=== PATIENT | female | born 1945 | race Caucasian/White ===

== ENCOUNTER 2024-11-04 13:06 | Inpatient (IN) | payer MEDICARE, OTHER, SELFPAY ==
[2024-11-04] VITALS (8 sets, daily range): BP systolic 90–161; BP diastolic 58–82; PULSE 92–112; BMI 18.0
--- NOTE | 2024-11-04 09:57 | ED.GENMED ---
History of Present Illness
General
Chief Complaint: Musculo-Skeletal Complaint
Source: patient
Exam Limitations: none
Time Seen by Provider: 11/04/24 09:10
Nursing documentation reviewed up to this point in time: agreed with
History of Present Illness
History of Present Illness:
79-year-old female with a history of mesothelioma, DVT on Coumadin, COPD, chronic back pain with history of vertebral compression fractures, kyphosis and osteoporosis
Presents for acute on chronic worsening left lower back pain into her left anterior thigh. Patient has had pain in this back and hip for years, she has had sciatica where it goes down her leg but never usually wraps around the front to her thigh or
on the side of her thigh like it is over the past 2 days. She had no falls or injuries. She lives alone but has caregivers who help make her meals. It sounds as if she is minimally ambulatory at baseline and does use a walker from time to time.
She says she could not get in a comfortable position because her bed was too soft. Patient did not try anything for pain. She says she is afraid to take anything because she is on Coumadin. Patient actually called EMS last night because she was
feeling lightheaded and thought she was dehydrated. She says she needed them to hand her her cup of water. She ultimately refused transport. Patient says she did drink some water but she still feels dehydrated. Patient says 'are you going to
give me some fluids.'
She has not had a fever, urinary incontinence, new sensory changes, new weakness, abdominal pain,
She is many varicose veins in her legs all her which are chronic
Past History
Past History
ED Past Medical History: COPD, NIDDM and Other (DVT)
ED Past Surgical History: Gynecological and Other
Social History
Tobacco: Former smoker
Alcohol: None
Drug: None
Personal:
Living: alone
Review of Systems
Review of Systems
Allergies reviewed?: Yes
All Other Systems: Not applicable
Phy Exam
Physical Exam
Physical Exam:
GENERAL: significantly anxious, agitated, fidgeting, stressed
HEAD: NCAT
NECK: no midline tenderness, active ROM intact, no paraspinal muscle tenderness;
CARDIAC: Regular rate and rhythm, no edema
LUNGS: Clear breath sounds bilaterally, no acute respiratory distress, no wheezes/rales/rhonchi
ABDOMEN: Soft, without focal tenderness, no r/g, no cvat, normal bowel sounds, nondistended
NEUROLOGICAL: Alert and oriented, no focal neuro deficits, CN intact, 5/5 strength, sensation intact, ambulation slight limp left leg
SKIN: Warm and dry, varicose veins; no rash
MUSCULOSKELETAL: pt seems to have hypersensitivity to touch anywhere on legs; specifically moving L hip seems most uncomfortable; she does not wish to be examined; but she is flexing her knees and hips in the bed, trying to get comfortable so she
can perform active ROM
back severe kyphosis of spine, severe scoliosis
no bruising
PSYCH: anxious
Course
Orders/Labs/Results
Orders:
Orders
11/04/24 09:48
Acetaminophen [Tylenol] 650 mg PO NOW STA
Diazepam [Valium] 2 mg PO NOW STA
11/04/24 Lunch
Regular
At Your Request: Limited Participation
Fluid Restriction: 1440 mL/day (48 oz)
11/04/24 10:06
CPK [Creatine Phosphokinase] Urgent
Complete Blood Count/With Diff Urgent
Comprehensive Metabolic Panel Urgent
Glycohemoglobin (HgbA1c) Urgent
PTT Urgent
Prothrombin Time Urgent
Serum Osmolality Urgent
Comment: ADDED
TSH Reflex To Free T4 Urgent
Comment: ADDED
11/04/24 10:31
0.9% Sodium Chloride 1000 ml [Nss] 1,000 ml IV BOLUS
11/04/24 10:52
Osmolality, Random Urine Urgent
Date Specimen was Collected: 11/04/24
Time Specimen was Collected: 10:50
Comment: ADDED
Urinalysis Urgent
Date Specimen was Collected: 11/04/24
Time Specimen was Collected: 10:50
Urine Creatinine Urgent
Date Specimen was Collected: 11/04/24
Time Specimen was Collected: 10:50
Comment: ADDED
Urine Microscopic Urgent
Date Specimen was Collected: 11/04/24
Time Specimen was Collected: 10:50
Urine Sodium Urgent
Date Specimen was Collected: 11/04/24
Time Specimen was Collected: 10:50
Comment: ADDED
11/04/24 11:39
Add On- LAB Urgent
Tests Added?: serum osmolality, TSH w/ reflex T4
11/04/24 11:55
NEPHROLOGY CONSULT Routine
Consulting Provider: Uyen Chu
Was physician already notified: Yes
11/04/24 11:58
Admit/Transfer Patient As Directed
Co-Sign Provider:
Level of Care: Inpatient admission
Assign to:: Medical/Surgical
Physician / Group: zhanna dorsey
Diagnosis: Hyponatremia, back pain, weakness
Reason for Hospitalization: Hyponatremia, back pain, weakness
Expected length of stay greater than two midnights?: Yes
ELOS- Estimated Length of Stay in days: 3
I certify the patient meets the requirements for IP care: Yes
PRN Pain Medication Management As Directed
May give lesser potent ordered pain med per pt: Yes
preference::
Protocol:: Medication orders for pain may be administered in a
manner that supports deferring to patient preference
when the pt is:
- Requesting an ordered lesser potent pain medication.
Least to most potent pain medications are defined
as: acetaminophen < NSAID < tramadol < opioids
(morphine, oxycodone, hydromorphone).
- Requesting a lesser dose of the same medication IF
ORDERED.
- Requesting a less intrusive route of administration
if both routes are prescribed by the provider (PO <
IV).
11/04/24 12:00
Code Status As Directed
Resuscitation Status: Full Code
11/04/24 12:34
CT Abd/pel Without Iv Or Oral Urgent
Comment:
Reason For Exam: left sided pelvic pain, no trauma, rhabdo
11/04/24 13:54
Acetaminophen [Tylenol] 650 mg PO Q4HPRN PRN
Cholecalciferol (Vitamin D3) [VITAMIN D3 (cholecalciferol)] 25 mcg PO DAILY
Diazepam [Valium] 2 mg PO TIDPRN PRN
Lidocaine [Lidocaine 4% Patch] 1 patch TOPICAL DAILY
Apply Lidocaine patch(s) to:: lower back
Magnesium Hydroxide [Milk of Magnesia] 30 ml PO DAILYPRN PRN
Ondansetron Injectable [Zofran] 4 mg IV Q6HPRN PRN
Oxycodone [Roxicodone] 5 mg PO Q4HPRN PRN
11/04/24 13:54
EKG [Electrocardiogram (*1)] Routine
Reason for Study: QTc Monitoring
Activity As Directed
Activity Level: Ambulate
Ice Application [Cold Application] As Directed
Location: low back
Frequency: PRN
Duration of Application: No longer than 20 minutes
Method of Delivery: Ice packs
K pad [Heat Application] As Directed
Apply heat therapy device to (location):: lower back
Device Frequency setting:: 20 minute cycles
Device temperature setting:: Moderate: 100 F (38 C)
Orthostatic Vital Signs As Directed
Orthostatic VS Frequency: Daily
Pneumatic Compression Sleeves As Directed
Type: Knee high
Vital Signs As Directed
Frequency: Per unit guidelines
Ot Eval And Treat Routine
Pt Eval And Treat Routine
Activity Level: Ambulate
DX Deep Vein Thrombosis Video Routine
11/04/24 18:00
Warfarin [Coumadin] 2.5 mg PO SuTuThSa@1800
11/05/24 06:00
Basic Metabolic Panel IN AM
Magnesium IN AM
Prothrombin Time IN AM
11/05/24 08:00
Calcium Carbonate [Oscal [place] 500] 500 mg PO DAILY
11/06/24 06:00
Basic Metabolic Panel IN AM
Prothrombin Time IN AM
11/06/24 18:00
Warfarin [Coumadin] 5 mg PO MoWeFr@1800
11/07/24 06:00
Basic Metabolic Panel IN AM
Prothrombin Time IN AM
11/08/24 06:00
Prothrombin Time IN AM
11/09/24 06:00
Prothrombin Time IN AM
11/10/24 06:00
Prothrombin Time IN AM
Abnormal Lab Results
11/04/24 11/04/24
10:06 10:52
RBC 3.99 L 10^6/uL
(4.20-5.40)
Hct 34.8 L %
(37.0-47.0)
MCH 31.3 H pg
(27.0-31.0)
Absolute Neuts (auto) 7.6 H 10^3/uL
(1.4-6.5)
Absolute Lymphs (auto) 0.9 L 10^3/uL
(1.2-3.4)
Absolute Monos (auto) 0.8 H 10^3/uL
(0.1-0.6)
Neutrophils % 82.0 H %
(42.2-75.2)
Lymphocytes % 9.2 L %
(20.5-51.1)
PT 26.5 H Sec
(11.4-14.6)
APTT 35.1 H Sec
(23.4-35.0)
Sodium 122 L mmol/L
(135-145)
Chloride 90 L mmol/L
(98-107)
Creatinine 0.5 L mg/dL
(0.6-1.0)
Glucose 106 H mg/dl
(70-99)
Serum Osmolality 258 L mOsm/kg
(275-300)
AST 49 H U/L
(14-36)
Creatine Kinase 1384 H U/L
(30-135)
Urine Occult Blood 2+ A
(Negative)
Urine Osmolality 177 L mOsm/kg
(300-900)
Urine Sodium 16 L mmol/L
(30-90)
11/04/24 10:06
11/04/24 10:06
Vital Signs
Initial and Last Documented VS:
Initial Vital Signs
Temp Pulse Resp BP Pulse Ox
36.7 C 99 18 128/71 95
11/04/24 08:57 11/04/24 08:57 11/04/24 08:57 11/04/24 08:57 11/04/24 08:57
Last Documented Vital Signs
Temp Pulse Resp BP Pulse Ox
37.0 C 92 16 128/58 97
11/04/24 15:00 11/04/24 15:00 11/04/24 15:00 11/04/24 15:00 11/04/24 15:00
MDM/Problems Addressed
Differential Diagnosis Includes:
fibromyaglai, chronic pain, arthritis
MDM/Problems Addressed:
room [address] moriah zaldivar 79 y/o F from home, fibromyalgia, h/o DVTs on warfarin; from home, chronic arthritis/back pain but worse pain in her legs b/l (L>R) with spasms over the past 2 days
no trauma; no falls; no fever
very anxious
drinks a lot of water
vss, pain all over/hyperacusis
nv intact
moving both extremiteis, normal strength; pain with movement in her bakc and hips
ordered xrays but she wouldn't lay flat for them
tried giving pain meds, but she is sensitive; so i tried valium and tylenol and i'm going to switch to noncon ct scan
but she is coming in for rhabdo, unclear cause, 1300, with hyponatremia 122; i think that's really what's causing her leg pain acute on chronic;
admit
*Critical Care Note
Total Time (30-74mins, 75-104mins- exclusive of procedures): Not Applicable
ED Attending Note
-
Portions of this chart may have been created with voice recognition software.� Occasional wrong word or��sound alike� substitutions may have occurred due to the inherent limitations of voice recognition software.
Discharge Plan
Departure
Patient Disposition: Admit
Date of Disposition: 11/04/24
Time of Disposition: 10:31
Admit to: Med/Surg
Presentation/result/management discussed w/ accepting MD/DO: Hospitalist
Patient with high blood pressure during this ER visit?: No
Condition: Fair
Covid-19: Not Applicable
Discharge Problem:
Rhabdomyolysis
Interventions
Interventions:
*Risk Screen - Suicide Last Done: 11/04/24 08:57
*General Assessment Last Done: 11/04/24 12:50
*Neglect/Abuse Screening Last Done: 11/04/24 12:50
*ED- Fall Risk Assessment Last Done: 11/04/24 12:50
*Nursing Disposition Last Done: 11/04/24 13:38
ED- Neurological Assessment Last Done: 11/04/24 09:15
Discharge Date and Time
Discharge Date/Time: 11/04/24 13:38
[2024-11-04] MEDS: TYLENOL 650 MG PO (10:11)
[2024-11-04] MEDS: VALIUM 2 MG PO (10:11)
[2024-11-04 10:16] LABS: % Basophils 0.2 % (0-2); % Eosinophils 0.1 % (0-6); % Immature Granulocytes 0.2 % (0-0.5); % Lymphocytes 9.2 % (20.5-51.1); % Monocytes 8.3 % (1.7-9.3); Absolute Lymphocytes 0.9 10^3/uL (1.2-3.4); Absolute Monocytes 0.8 10^3/uL (0.1-0.6); Absolute Neutrophils 7.6 10^3/uL (1.4-6.5); Hematocrit 34.8 % (37.0-47.0); Hemoglobin 12.5 g/dL (12.0-16.0); Mean Corp Hgb Conc. 35.9 g/dL (33.0-37.0); Mean Corpuscular Hgb 31.3 pg (27.0-31.0); Mean Corpuscular Volume 87.2 fL (81.0-99.0); Mean Platelet Volume 9.1 fL (7.4-10.4); Nucleated Red Blood Cells % 0 %; Platelet Count 280 10^3/uL (130-400); Red Blood Cell Count 3.99 10^6/uL (4.20-5.40); Red Cell Dist. Width 13.4 % (11.5-14.5); White Blood Cell Count 9.3 10^3/uL (4.8-10.8)
[2024-11-04 10:25] LABS: ALT (SGPT) 24 U/L (0-35); AST (SGOT) 49 U/L (14-36); Albumin 4.3 g/dl (3.5-5.0); Alkaline Phosphatase 67 U/L (38-126); Blood Urea Nitrogen 17 mg/dl (7-17); Calcium 9.2 mg/dl (8.4-10.2); Carbon Dioxide 29 mmol/L (22-30); Chloride 90 mmol/L (98-107); Creatine Phosphokinase 1384 U/L (30-135); Glucose 106 mg/dl (70-99); Sodium 122 mmol/L (135-145); Total Bilirubin 0.8 mg/dl (0.2-1.3); Total Protein 6.9 g/dl (6.3-8.2); eGFR > 60.00
[2024-11-04 10:37] LABS: APTT 35.1 Sec (23.4-35.0); INR 2.44; PT 26.5 Sec (11.4-14.6)
[2024-11-04 11:00] LABS: Urine Albumin Negative (Neg - Trace); Urine Bilirubin Negative (Negative); Urine Character Clear (Clear); Urine Color Yellow; Urine Glucose Negative (Negative); Urine Ketone Negative (Negative); Urine Leukocyte Negative (Negative); Urine Nitrite Negative (Negative); Urine Occult Blood 2+ (Negative); Urine Urobilinogen Negative (Neg - 1+)
[2024-11-04] MEDS: NSS 1000 IV (11:11)
--- NOTE | 2024-11-04 11:36 | HPS.HSE ---
Addendum entered and electronically signed by Maykel Blake MD 11/04/24 13:51:
Patient also has:
#Elevated CPK, nontraumatic
CPK 1384
Patient received 1 L of normal saline in the ER, will repeat levels in the morning
Original Note:
Family Physician
-
Family Physician: Norberto Okeefe
Chief Complaint
-
Intractable acute on chronic lower back pain
History of Present Illness
79-year-old female with a past medical history of fibromyalgia, chronic back pain, T/L-spine compression fractures, kyphosis, osteoporosis, IBS, COPD, mesothelioma, and DVT on Coumadin presents with acute on chronic intractable lower back pain.
Patient reports getting a new mattress on Wednesday that is softer. Since then, she has had worsening acute on chronic lower back pain with radiation down the left buttock. Patient denies any injury, new fall or trauma. She reports drinking a lot of
water, this is normal for her. She did not take any medications for pain at home due to concerns about it interacting with Coumadin. She denies bowel or bladder incontinence, saddle anesthesia, or new weakness. No fever, no chest pain, no
shortness of breath. She does report abdominal bloating. No vomiting, no constipation, no diarrhea. She lives alone, and has caregivers come a few hours a day.
Medical History
Past Medical History
Past Medical History: Reports Other
Additional Past Medical History:
Fibromyalgia
Chronic back pain
Thoracic and lumbar compression fractures
Osteoporosis
Kyphosis
Anxiety
Mesothelioma
DVT on Coumadin
COPD
Irritable bowel syndrome
Diabetes
Past Surgical History: Reports Other
Additional Past Surgical History:
Hysterectomy
Resection of mesothelioma tumors
Social History
Tobacco: Former Smoker
Alcohol: None
Family History
Family History: Not pertinent
Allergies / Home Medications
Allergies reflects when Allergies were last updated in [facility].
Home Medications with original date entered in [facility]
Allergy/Medication List:
Allergies
Allergy/AdvReac Type Severity Reaction Status Date / Time
ciprofloxacin [From Cipro] Allergy Unknown Hives Verified 11/04/24 09:00
clarithromycin [From Biaxin] Allergy Unknown Hives Verified 11/04/24 09:00
iodine Allergy Unknown Anaphylaxis Verified 11/04/24 09:00
Penicillins Allergy Unknown Anaphylaxis Verified 11/04/24 09:00
shellfish derived Allergy Unknown Anaphylaxis Verified 11/04/24 09:00
Sulfa (Sulfonamide Allergy Unknown Anaphylaxis Verified 11/04/24 09:00
Antibiotics)
amino acids [From Ephadrene] Allergy Unknown Verified 11/04/24 09:00
chromium [From Ephadrene] Allergy Unknown Verified 11/04/24 09:00
codeine Allergy Unknown Verified 11/04/24 09:00
cyanocobalamin (vitamin B12) Allergy Unknown Verified 11/04/24 09:00
[From Ephadrene]
herbal complex no.35 Allergy Unknown Verified 11/04/24 09:00
[From Ephadrene]
pyridoxine [From Ephadrene] Allergy Unknown Verified 11/04/24 09:00
Home Medications Table - record
�Medication �Instructions �Recorded �Confirmed
calcium carbonate (Calcium 500) 500 mg PO DAILY 11/04/24 11/04/24
cholecalciferol (vitamin D3) 25 25 mcg PO DAILY 11/04/24 11/04/24
mcg (1,000 unit) chewable tablet
(Vitamin D3)
magnesium hydroxide 400 mg/5 mL 1,200 mg PO DAILYPRN PRN 11/04/24 11/04/24
oral suspension (Milk of Magnesia) constipation
warfarin 2.5 mg tablet 2.5 mg PO SUTUTHSA 11/04/24 11/04/24
warfarin 5 mg tablet 5 mg PO MOWEFR 11/04/24 11/04/24
Review of Systems
-
A 12 point ROS was completed and negative except as noted: Yes
Physical Exam
Vital Signs
Vital Signs
Temp Pulse Resp BP Pulse Ox
98.0 F 99 16 90/60 99
11/04/24 08:57 11/04/24 11:14 11/04/24 11:14 11/04/24 11:14 11/04/24 11:14
Physical Exam
General: No Apparent Distress
HEENT: NormoCephalic, Anicteric, Moist mucous membranes and Atraumatic
Respiratory: Clear
Cardiac: S1/S2 and Regular Rhythm
GI: Soft, Non Tender, Non Distended and Normal Bowel Sounds
Musculoskeletal: No Clubbing, No Cyanosis, Edema, Left Lower Extremity and Edema, Right Lower Extremity
Neuro: Awake, Alert and Oriented
Psych: Calm
Laboratory Results
-
11/04/24 10:06
11/04/24 10:06
Laboratory Results
PT 26.5 Sec (11.4-14.6) H 11/04/24 10:06
INR 2.44 11/04/24 10:06
APTT 35.1 Sec (23.4-35.0) H 11/04/24 10:06
Total Bilirubin 0.8 mg/dl (0.2-1.3) 11/04/24 10:06
AST 49 U/L (14-36) H 11/04/24 10:06
ALT 24 U/L (0-35) 11/04/24 10:06
Alkaline Phosphatase 67 U/L (38-126) 11/04/24 10:06
Impression/Plan
-
HPI: 79-year-old female with a past medical history of fibromyalgia, chronic back pain, T/L-spine compression fractures, kyphosis, osteoporosis, IBS, COPD, mesothelioma, and DVT on Coumadin presents with acute on chronic intractable lower back pain.
Patient reports getting a new mattress on [place] that is softer. Since then, she has had worsening acute on chronic lower back pain with radiation down the left buttock. Patient denies any injury, new fall or trauma. She reports drinking a lot
of water, this is normal for her. She did not take any medications for pain at home due to concerns about it interacting with Coumadin. She denies bowel or bladder incontinence, saddle anesthesia, or new weakness. No fever, no chest pain, no
shortness of breath. She does report abdominal bloating. No vomiting, no constipation, no diarrhea. She lives alone, and has caregivers come a few hours a day.
#Hyponatremia, likely acute on chronic
Suspect secondary to polydipsia, as patient reports drinking 6�8 bottles of 16 ounces of water a day
Check urine sodium, urine creatinine, urine osmolality, serum osmolality, TSH with free T4, a.m. cortisol
Fluid restrict, consult nephrology
#Acute on chronic worsening lower back pain
Denies trauma, denies fall
Occurring since changing to a softer mattress
ER ordered CT lumbar
Treat with heat, ice, lidocaine patches, Tylenol, valium/oxycodone as needed
PT/OT, patient lives alone
#History of DVT on Coumadin
INR therapeutic, continue Coumadin
#Osteoporosis
#Kyphosis
Continue calcium and vitamin D supplements
#History of diabetes
Accu-Cheks, sliding scale insulin, check hemoglobin A1c
Provide a regular diet for now since patient is underweight
#Underweight
Encourage oral intake
#Anxiety
Monitor
DVT prophylaxis�Coumadin
Full code
Updated family at bedside 11/04
Total time spent to see the patient on the floor, examine the patient, review data and lab results, discuss treatment plan with patient, nursing staff around 76 minutes.
[2024-11-04 11:50] LABS: Urine Squamous Cell 0-2 /LPF (Few)
[2024-11-04 11:51] LABS: Urine Urothelial Cell 0-2 /LPF (FEW)
[2024-11-04 11:54] LABS: Urine Red Blood Cell 0-2 /HPF (0-2); Urine White Cell 0-2 /HPF (0-5)
[2024-11-04 13:10] LABS: Osmolality Serum 258 mOsm/kg (275-300)
[2024-11-04 13:34] LABS: TSH Reflex To Free T4 2.35 uIU/ml (0.47-4.68)
[2024-11-04 13:52] LABS: Osmolality Urine 177 mOsm/kg (300-900)
[2024-11-04 14:12] LABS: Urine Sodium 16 mmol/L (30-90)
--- NOTE | 2024-11-04 14:16 | PTCARENOTE ---
Pt transferred from ED. Pt ambulated into room with assistance. Pt oriented to unit, call lin within reach, bed alarm applied. Will continue with current plan.
--- NOTE | 2024-11-04 15:45 | W.CON.NEPH ---
Consultation
-
Date/Time Consultation Requested: 11/04/24 1155
Date/Time Consultation Performed: 11/04/24 1630
Requesting Provider: Sneha Isabel Do
Performing Provider: Uyen Dee
Reason for Consultation: hyponatremia
Medical History
-
Chief Complaint: Intractable acute on chronic lower back pain
History of Present Illness:
79-year-old female with a past medical history of fibromyalgia, chronic back pain, T/L-spine compression fractures, kyphosis, osteoporosis, IBS, COPD, mesothelioma, and recurrent DVT on Coumadin, varicose veins presents with acute on chronic
intractable lower back pain. Reportedly triggered by new mattress on yesterday that is softer. Since then, she has had worsening acute on chronic lower back pain with radiation down the left buttock. she hasn't been feeling her normal self for the
last 2 weeks and saw her primary who ran different testings and noted to have positive SAMANTHA and was referred to see rheumatology this coming week. She normally drinks plenty of liquids 6-8 bottles of 16 ounces water daily as she feels thirsty
always. She hasn't taken any medications for her pain due to afraid of interaction with the Coumadin. She had lightheadedness, tingling in lower extremities in the feet especially. Unable to walk steadily for last few days. given her multiple
symptoms especially with worsening pain she presented to the ER today. On the laboratory data shows sodium of 122. She has No fever, no chest pain, no shortness of breath. She does report abdominal bloating. No vomiting, no constipation, no
diarrhea. She lives alone, and has caregivers come a few hours a day.
At bedside sin reports that she eats very picky.
Past Medical History
Fibromyalgia
Chronic back pain
Thoracic and lumbar compression fractures
Osteoporosis
Kyphosis
Anxiety
Mesothelioma
DVT on Coumadin
COPD
Irritable bowel syndrome
Diabetes
Past Surgical History: Other (Hysterectomy Resection of mesothelioma tumors)
Social History
Tobacco: Former Smoker
Alcohol: None
Drug: None
Personal:
Living: Alone
Family History
Family History: Not Pertinent
Allergies / Home Medications
Allergy/AdvReac Type Severity Reaction Status Date / Time
amino acids [From Ephadrene] Allergy Unknown Verified 11/04/24 09:00
chromium [From Ephadrene] Allergy Unknown Verified 11/04/24 09:00
ciprofloxacin [From Cipro] Allergy Hives Verified 11/04/24 14:03
clarithromycin [From Biaxin] Allergy Hives Verified 11/04/24 14:03
codeine Allergy Unknown Verified 11/04/24 09:00
cyanocobalamin (vitamin B12) Allergy Unknown Verified 11/04/24 09:00
[From Ephadrene]
herbal complex no.35 Allergy Unknown Verified 11/04/24 09:00
[From Ephadrene]
iodine Allergy Anaphylaxis Verified 11/04/24 14:03
Penicillins Allergy Anaphylaxis Verified 11/04/24 14:03
pyridoxine [From Ephadrene] Allergy Unknown Verified 11/04/24 09:00
shellfish derived Allergy Anaphylaxis Verified 11/04/24 14:03
Sulfa (Sulfonamide Allergy Anaphylaxis Verified 11/04/24 14:03
Antibiotics)
�Medication �Instructions �Recorded �Confirmed �Type
calcium carbonate (Calcium 500) 500 mg PO DAILY 11/04/24 11/04/24 History
cholecalciferol (vitamin D3) 25 25 mcg PO DAILY 11/04/24 11/04/24 History
mcg (1,000 unit) chewable tablet
(Vitamin D3)
magnesium hydroxide 400 mg/5 mL 1,200 mg PO DAILYPRN PRN 11/04/24 11/04/24 History
oral suspension (Milk of Magnesia) constipation
warfarin 2.5 mg tablet 2.5 mg PO SUTUTHSA 11/04/24 11/04/24 History
warfarin 5 mg tablet 5 mg PO MOWEFR 11/04/24 11/04/24 History
Review of Systems
-
All other systems: Negative unless noted
Physical Exam
Vital Signs
Vital Signs
Temp Pulse Resp BP Pulse Ox
98.0 F 99 16 90/60 99
11/04/24 08:57 11/04/24 11:14 11/04/24 11:14 11/04/24 11:14 11/04/24 11:14
Lab Results
WBC 9.3 10^3/uL (4.8-10.8) 11/04/24 10:06
RBC 3.99 10^6/uL (4.20-5.40) L 11/04/24 10:06
Hgb 12.5 g/dL (12.0-16.0) 11/04/24 10:06
Hct 34.8 % (37.0-47.0) L 11/04/24 10:06
Plt Count 280 10^3/uL (130-400) 11/04/24 10:06
Sodium 122 mmol/L (135-145) L 11/04/24 10:06
Potassium 4.0 mmol/L (3.5-5.1) 11/04/24 10:06
Chloride 90 mmol/L (98-107) L 11/04/24 10:06
Carbon Dioxide 29 mmol/L (22-30) 11/04/24 10:06
BUN 17 mg/dl (7-17) 11/04/24 10:06
Creatinine 0.5 mg/dL (0.6-1.0) L 11/04/24 10:06
eGFR > 60.00 11/04/24 10:06
Glucose 106 mg/dl (70-99) H 11/04/24 10:06
Calcium 9.2 mg/dl (8.4-10.2) 11/04/24 10:06
Albumin 4.3 g/dl (3.5-5.0) 11/04/24 10:06
Physical Exam
General: Awake, Alert, Oriented, AOx3, No Distress, Nontoxic and Other (severe kyphosis)
HEENT: EOMI, Anicteric, Ear/Nose Intact, Facial Symmetry and Neck Supple
Respiratory: Clear, Normal Excursion and Nonlabored Respirations
Cardiac: S1/S2 and Regular Rate/Rhythm
Breast: Deferred by me
Abdomen: Soft, Nontender and Nondistended
Musculoskeletal: No Cyanosis, No Edema and Other ( varicose veins bilaterally more on the right)
Skin: No Rash, Warm and Dry
Neuro: Nonfocal/Grossly Intact
Psych: Mood/afflect pleasant, Insight/judgement good and Appropriate
Data Reviewed
-
Radiology: Report Reviewed by me, Discussed with Patient and Discussed with Family
Labs: Labs Reviewed by me, Discussed with Patient and Discussed with Family
Assessment/Plan
-
IMP:
Hyponatremia
Acute on chronic worsening lower back pain
Mild rhabdomyolysis
History of DVT on Coumadin
Osteoporosis
Kyphosis
History of diabetes
Underweight
Anxiety
Right-sided pelvic kidney. Dilation of the right renal pelvis with mild dilation of the calyces on CT
plan:
A/w acute on chr pain
Hyponatremia-(no previous history of sodium issue), precipitated by pain +polydipsia
urine osmolarity at 177, urine sodium 16 suggest polydipsia. She may have underlying high ADH state with a chronic pain
her TSH is normal, monitor her only with the fluid restriction With 48 ounces per day
Blood pressures are soft, she received 1 L of normal saline in the ER
check a cortisol level
Follow CK level in the morning, okay for isotonic fluid bolus if needed for low blood pressures
recheck labs now, hypotonic fluids if rapid correction
she should also improve solute intake
d/w pt and son in detail
CT findings noted with a right pelvic kidney with dilation of renal pelvis and calyces-she has bland urine and normal renal function with a creatinine of 0.5
follow-up as an outpatient with the
[2024-11-04 16:54] LABS: Glucose - Point of Care 96 mg/dl (70-99)
[2024-11-04 17:21] LABS: Sodium 136 mmol/L (135-145)
[2024-11-04] MEDS: COUMADIN 2.5 MG PO (18:15)
[2024-11-04] MEDS: D5W 1000 IV (18:26)
[2024-11-04 20:50] LABS: Glucose - Point of Care 96 mg/dl (70-99)
[2024-11-04 21:35] LABS: Sodium 134 mmol/L (135-145)
[2024-11-05 02:28] LABS: Sodium 136 mmol/L (135-145)
--- NOTE | 2024-11-05 02:35 | PTCARENOTE ---
Upon going into pt's room to draw 02:00 serum Na, pt's IV pump was turned off. Evidently, the pump wasn't plugged into the wall all the way and the pump . When asked how long the pump had been off, the pt said that it had been beeping but she
thought that meant it was working, and that it stopped beeping 'a couple of hours ago'. New pump obtained, plugged into wall, IVF infusing as ordered.
[2024-11-05 06:10] LABS: INR 2.89; PT 30.2 Sec (11.4-14.6)
[2024-11-05 06:22] LABS: Blood Urea Nitrogen 13 mg/dl (7-17); Calcium 8.9 mg/dl (8.4-10.2); Carbon Dioxide 27 mmol/L (22-30); Chloride 106 mmol/L (98-107); Estimated Creatinine Clearance 45 ml/min; Glucose 91 mg/dl (70-99); Potassium 3.7 mmol/L (3.5-5.1); Sodium 136 mmol/L (135-145); eGFR > 60.00
[2024-11-05 06:33] LABS: Creatine Phosphokinase 2641 U/L (30-135)
[2024-11-05 06:53] LABS: Cortisol, Random 7.2 ug/dl
[2024-11-05 07:00] VITALS: BP 145/80
[2024-11-05 08:03] LABS: Glucose - Point of Care 95 mg/dl (70-99)
[2024-11-05 08:35] VITALS: BP 137/74; PULSE 85; O2SAT 96
[2024-11-05 08:40] VITALS: BP 137/74; PULSE 85; O2SAT 97
--- NOTE | 2024-11-05 08:55 | W.PN.HOSP.TC ---
Today's Communication/Plan
-
see bold
Assessment / Plan
Assessment / Plan
HPI: 79-year-old female with a past medical history of fibromyalgia, chronic back pain, T/L-spine compression fractures, kyphosis, osteoporosis, IBS, COPD, mesothelioma, and DVT on Coumadin presents with acute on chronic intractable lower back pain.
Patient reports getting a new mattress on Wednesday that is softer. Since then, she has had worsening acute on chronic lower back pain with radiation down the left buttock. Patient denies any injury, new fall or trauma. She reports drinking a lot
of water, this is normal for her. She did not take any medications for pain at home due to concerns about it interacting with Coumadin. She denies bowel or bladder incontinence, saddle anesthesia, or new weakness. No fever, no chest pain, no
shortness of breath. She does report abdominal bloating. No vomiting, no constipation, no diarrhea. She lives alone, and has caregivers come a few hours a day.
#Hyponatremia, likely acute on chronic
Patient reports drinking 6�8 bottles of 16 ounces of water a day
Appreciate nephrology input, due to polydipsia and an underlying high ADH state due to her chronic pain
TSH normal, a.m. cortisol normal
Sodium now normalized, continue fluid restriction, trend Na
#Acute on chronic worsening lower back pain
Denies trauma, denies fall
Occurring since changing to a softer mattress
CT abdomen and pelvis does not show any new compression fractures, only old
Treat with heat, ice, lidocaine patches, Tylenol, valium/oxycodone as needed
PT/OT-recommends home PT/home VN, and increasing caregiver hours
#Nontraumatic rhabdomyolysis
Patient received 1 L normal saline in the ER, and 1 L D5W by nephrology
Trend CK levels
#History of DVT on Coumadin
INR therapeutic, continue Coumadin
#Osteoporosis
#Kyphosis
Continue calcium and vitamin D supplements
#History of diabetes, no longer diabetic
Accu-Cheks, sliding scale insulin, hemoglobin A1c 5.5
Provide a regular diet for now since patient is underweight
#Underweight
Encourage oral intake, protein supplements
#Anxiety
Monitor
DVT prophylaxis�Coumadin
Full code
Updated son on phone 11/05
Total time spent to see the patient on the floor, examine the patient, review data and lab results, discuss treatment plan with patient, nursing staff around 51 minutes.
Physical Exam
General: Frail, no acute distress
HEENT: Normocephalic, Atraumatic, EOMI, MMM
Respiratory: Clear to Auscultation bilaterally
Cardiac: Normal S1/S2, Regular Rate and Rhythm
GI: Soft, Nontender, Nondistended, Normal Bowel Sounds
Extremities: No Clubbing, Cyanosis
Mild bilateral lower extremity edema
Neuro: Nonfocal/Grossly Intact
Anticipated Discharge: 24 - 48 hours
Subjective/Interval History
-
Date of Service: November 04, 2024
Patient reports that her back pain has improved dramatically, is currently mild. Her muscle spasms have resolved. She reports mild dizziness. No nausea, no vomiting. No fever.
Objective Data
-
Labs:
Laboratory Results
11/04/24
10:06
WBC 9.3
Hgb 12.5
Hct 34.8 L
Plt Count 280
PT 26.5 H
INR 2.44
APTT 35.1 H
Sodium 122 L
Potassium 4.0
Chloride 90 L
Carbon Dioxide 29
BUN 17
Creatinine 0.5 L
Glucose 106 H
Calcium 9.2
Total Bilirubin 0.8
AST 49 H
ALT 24
Alkaline Phosphatase 67
Vital Signs:
Vital Signs
Temp Pulse Resp BP Pulse Ox
98.0 F 99 16 90/60 99
11/04/24 08:57 11/04/24 11:14 11/04/24 11:14 11/04/24 11:14 11/04/24 11:14
[2024-11-05 09:45] VITALS: BP 123/72; BP 136/66; BP 141/71; PULSE 102; PULSE 103; PULSE 97
[2024-11-05] MEDS: D5W 1000 IV (09:52)
--- NOTE | 2024-11-05 10:54 | W.PN.NEPH.PH ---
Today's Communication / Plan
-
NS and follow CK
Assessment/Plan
-
IMP:
Hyponatremia
Acute on chronic worsening lower back pain
Mild rhabdomyolysis
History of DVT on Coumadin
Osteoporosis
Kyphosis
History of diabetes
Underweight
Anxiety
Right-sided pelvic kidney. Dilation of the right renal pelvis with mild dilation of the calyces on CT
plan:
A/w acute on chr pain
Hyponatremia-(no previous history of sodium issue), precipitated by pain +polydipsia
urine osmolarity at 177, urine sodium 16 suggest polydipsia. She may have underlying high ADH state with a chronic pain
sodium better and autocorrected despite hypotonic fluids
her TSH and cortisol normal, cont fluid restriction With 48 ounces per day
Blood pressures are better
increasing CK no clear etiology, probably limited movement with pain for days [employer], no affecting med,check phos
will switch to NS and follow level in am
need pain control-reviewed with pt, ok for tylenol
she should also improve solute intake
CT findings noted with a right pelvic kidney with dilation of renal pelvis and calyces-she has bland urine and normal renal function with a creatinine of 0.5
follow-up as an outpatient with the [facility]
d/w pt and sister in detail
-
-
Date of Service: November 05, 2024
CC / HPI / ROS
-
Chief Complaint:
hypoantremia, mild Rhabdo
History of Present Illness:
cr 0.6, na 136 better
bp improving
Review of Systems:
no cp, or sob
back pain better,s till with mild lightheadedness
Labs
-
Labs:
WBC 9.3 10^3/uL (4.8-10.8) 11/04/24 10:06
RBC 3.99 10^6/uL (4.20-5.40) L 11/04/24 10:06
Hgb 12.5 g/dL (12.0-16.0) 11/04/24 10:06
Hct 34.8 % (37.0-47.0) L 11/04/24 10:06
Plt Count 280 10^3/uL (130-400) 11/04/24 10:06
Sodium 136 mmol/L (135-145) 11/05/24 05:17
Potassium 3.7 mmol/L (3.5-5.1) 11/05/24 05:17
Chloride 106 mmol/L (98-107) 11/05/24 05:17
Carbon Dioxide 27 mmol/L (22-30) 11/05/24 05:17
BUN 13 mg/dl (7-17) 11/05/24 05:17
Creatinine 0.6 mg/dL (0.6-1.0) 11/05/24 05:17
eGFR > 60.00 11/05/24 05:17
Glucose 91 mg/dl (70-99) 11/05/24 05:17
Calcium 8.9 mg/dl (8.4-10.2) 11/05/24 05:17
Albumin 4.3 g/dl (3.5-5.0) 11/04/24 10:06
Physical Exam
-
Vital Signs:
Vital Signs
Temp Pulse Resp BP Pulse Ox
97.9 F 85 16 145/80 94
11/05/24 07:00 11/05/24 07:00 11/05/24 07:00 11/05/24 07:00 11/05/24 07:00
Cardiovascular:: Regular rate and rhythm
Respiratory:: Bilateral: CTA
Lung Excursion:: Normal
Abdomen:: Nontender and Soft
Extremity Edema:: None: Bilateral:
Moreira Catheter: No
[2024-11-05] MEDS: NSS 1000 IV (11:38)
[2024-11-05 11:46] LABS: Glucose - Point of Care 130 mg/dl (70-99)
[2024-11-05] MEDS: NON-FORMULARY ITEM 1 UNIT PO (11:49)
[2024-11-05 12:25] LABS: Glycohemoglobin (HgbA1c) 5.5 % (4.0-5.6)
--- NOTE | 2024-11-05 13:28 | CM ---
strategic alliances manager reviewed patient's chart and met with patient and patient lives alone in a one story home, patient is independent with adl's and uses a walker with ambulation. Patient has an aide from [employer] [employer] 5-7pm 5 days a week, and
3:30-5:30, plan is to home with visiting nurses, options reviewed and patient has selected [facility].
PCP: Dr. Okeefe
Pharmacy; [facility]
Plan; Home with [facility]
[2024-11-05 15:00] VITALS: BP 128/66
[2024-11-05 16:41] LABS: Glucose - Point of Care 92 mg/dl (70-99)
[2024-11-05] MEDS: COUMADIN 2.5 MG PO (17:59)
[2024-11-05 22:03] LABS: Glucose - Point of Care 104 mg/dl (70-99)
[2024-11-05 23:46] VITALS: BP 123/81
[2024-11-06] MEDS: NSS 1000 IV ×2 (00:03→12:19)
[2024-11-06] MEDS: TYLENOL 650 MG PO (05:35)
--- NOTE | 2024-11-06 06:30 | PTCARENOTE ---
AAO x 3. Patient is anxious. VSS. Patient complains of severe back pain yet, is refusing all pain medications except for Tylenol. Frequent weight shifting encouraged due to low body weight and bony prominences. OOB x 1 assist to bedside commode. Bed
alarm on. Bed in lowest position. Call lin and personal belongings within reach.
[2024-11-06 07:16] LABS: INR 2.45; PT 26.7 Sec (11.4-14.6)
[2024-11-06 07:53] LABS: Blood Urea Nitrogen 15 mg/dl (7-17); Calcium 8.4 mg/dl (8.4-10.2); Carbon Dioxide 25 mmol/L (22-30); Chloride 107 mmol/L (98-107); Creatine Phosphokinase 1083 U/L (30-135); Estimated Creatinine Clearance 45 ml/min; Glucose 86 mg/dl (70-99); Potassium 3.9 mmol/L (3.5-5.1); Sodium 135 mmol/L (135-145); eGFR > 60.00
[2024-11-06 08:11] LABS: Glucose - Point of Care 81 mg/dl (70-99)
[2024-11-06 08:17] VITALS: BP 142/82
[2024-11-06] MEDS: NON-FORMULARY ITEM 1 UNIT PO (08:38)
--- NOTE | 2024-11-06 09:42 | W.PN.HOSP.TC ---
Today's Communication/Plan
-
see A/P
Assessment / Plan
Assessment / Plan
HPI: 79-year-old female with past medical history of fibromyalgia, chronic back pain, T/L-spine compression fractures, kyphosis, osteoporosis, IBS, COPD, mesothelioma, and DVT on Coumadin presented with acute on chronic intractable lower back pain.
Patient reported getting a new mattress on Wednesday that is softer. Since then, she has had worsening acute on chronic lower back pain with radiation down the left buttock. Patient denies any injury, new fall or trauma. She reports drinking a lot of
water, this is normal for her. She did not take any medications for pain at home due to concerns about it interacting with Coumadin. She denies bowel or bladder incontinence, saddle anesthesia, or new weakness. No fever, no chest pain, no
shortness of breath. She does report abdominal bloating. No vomiting, no constipation, no diarrhea. She lives alone, and has caregivers come a few hours a day.
A/P:
# Hyponatremia, likely acute on chronic, resolved
Patient reports drinking 6�8 bottles of 16 ounces of water a day
Appreciate nephrology input, due to polydipsia and an underlying high ADH state due to her chronic pain
Sodium now normalized, continue fluid restriction, trend Na
# Acute on chronic worsening lower back pain
Denies trauma, denies fall
Occurring since changing to a softer mattress
CT abdomen and pelvis does not show any new compression fractures, only old
Treat with heat, ice, lidocaine patches, Tylenol, Valium/oxycodone as needed
PT/OT recommends home PT/home VN, and increasing caregiver hours
# Nontraumatic rhabdomyolysis
Patient received 1 L normal saline in the ER, and 1 L D5W by nephrology
Cont gentle IVF with NSS, Trend CK levels
# History of DVT on Coumadin
INR therapeutic, continue Coumadin
# Osteoporosis
# Kyphosis
Continue calcium and vitamin D supplements
# History of diabetes, no longer diabetic
Accu-Cheks, sliding scale insulin, hemoglobin A1c 5.5
Provide a regular diet for now since patient is underweight
# Underweight
Encourage oral intake, protein supplements
# Anxiety
Monitor
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
Check B12 level
A1C WNL at 5.5%
recc outpt PCP/Neuro eval
DVT prophylaxis�Coumadin
Full code
DW renal
Updated son on phone
Anticipated Discharge: Within 24 hours
Subjective/Interval History
-
Date of Service: November 06, 2024
Objective Data
-
Labs:
Laboratory Results
11/06/24
06:55
PT 26.7 H
INR 2.45
Sodium 135
Potassium 3.9
Chloride 107
Carbon Dioxide 25
BUN 15
Creatinine 0.5 L
Glucose 86
Calcium 8.4
Vital Signs:
Vital Signs
Temp Pulse Resp BP Pulse Ox
36.3 C 90 18 142/82 96
11/06/24 08:17 11/06/24 08:17 11/06/24 08:17 11/06/24 08:17 11/06/24 08:17
I&O
11/05/24 11/06/24 11/07/24
06:59 06:59 06:59
Intake Total 880 / 880 240 / 240
Balance 880 / 880 240 / 240
Review of Systems
-
History Source: Patient
All other systems: Reviewed and negative
Neuro: Reports Other (chronic pins and needles in feet and hands)
Physical Exam
-
General: Well Developed, No Apparent Distress, Comfortable and Conversant; Negative Respiratory Distress
HEENT: Normocephalic, Atraumatic, Nose Appears Normal and Ears Appear Normal; Negative Oxygen
Respiratory: Clear to Auscultation and Non Labored Respirations; Negative Accessory Resp Muscle Use
Cardiac: Regular Rhythm and S1/S2
GI: Soft, Nontender, Nondistended and Normal Bowel Sounds
Skin: Warm and Dry
Neuro: Awake, Alert and Oriented
Psych: Calm and Intact Judgement/Insight
Data Reviewed
-
CT Scan: Report Reviewed by me
Labs: Labs Reviewed by me
[2024-11-06 10:10] VITALS: BMI 18.0
[2024-11-06] MEDS: MILK OF MAGNESIA 30 ML PO (11:17)
[2024-11-06 12:06] LABS: Vitamin B12 823 pg/ml (239-931)
--- NOTE | 2024-11-06 12:13 | W.PN.NEPH.PH ---
Today's Communication / Plan
-
IVF today, follow labs
Assessment/Plan
-
IMP:
Hyponatremia
Acute on chronic worsening lower back pain
Mild rhabdomyolysis
History of DVT on Coumadin
Osteoporosis
Kyphosis
History of diabetes
Underweight
Anxiety
Right-sided pelvic kidney. Dilation of the right renal pelvis with mild dilation of the calyces on CT
plan:
A/w acute on chr back pain
Hyponatremia-(no previous history of sodium issue), precipitated by pain +polydipsia
urine osmolarity at 177, urine sodium 16 suggest polydipsia. She may have underlying high ADH state with a chronic pain
sodium stable now at 135
her TSH and cortisol normal, cont fluid restriction With 48 ounces per day
Blood pressures stable
improving CK , IVF another day and follow level in am
will switch to NS and follow level in am
she should also improve solute intake
CT findings noted with a right pelvic kidney with dilation of renal pelvis and calyces-she has bland urine and normal renal function with a creatinine of 0.5
follow-up as an outpatient with the
d/w pt
-
-
Date of Service: November 06, 2024
CC / HPI / ROS
-
Chief Complaint:
hypoantremia, mild Rhabdo
History of Present Illness:
cr 0.6, na 135 stable
bp stable
CK improving to 1083
Review of Systems:
no cp, or sob
back pain better
did not sleep well
c/o neuropathy symp in le for a while now
Labs
-
Labs:
WBC 9.3 10^3/uL (4.8-10.8) 11/04/24 10:06
RBC 3.99 10^6/uL (4.20-5.40) L 11/04/24 10:06
Hgb 12.5 g/dL (12.0-16.0) 11/04/24 10:06
Hct 34.8 % (37.0-47.0) L 11/04/24 10:06
Plt Count 280 10^3/uL (130-400) 11/04/24 10:06
Sodium 135 mmol/L (135-145) 11/06/24 06:55
Potassium 3.9 mmol/L (3.5-5.1) 11/06/24 06:55
Chloride 107 mmol/L (98-107) 11/06/24 06:55
Carbon Dioxide 25 mmol/L (22-30) 11/06/24 06:55
BUN 15 mg/dl (7-17) 11/06/24 06:55
Creatinine 0.5 mg/dL (0.6-1.0) L 11/06/24 06:55
eGFR > 60.00 11/06/24 06:55
Glucose 86 mg/dl (70-99) 11/06/24 06:55
Calcium 8.4 mg/dl (8.4-10.2) 11/06/24 06:55
Phosphorus 3.0 mg/dl (2.5-4.5) 11/05/24 05:17
Albumin 4.3 g/dl (3.5-5.0) 11/04/24 10:06
Physical Exam
-
Vital Signs:
Vital Signs
Temp Pulse Resp BP Pulse Ox
97.4 F 90 18 142/82 96
11/06/24 08:17 11/06/24 08:17 11/06/24 08:17 11/06/24 08:17 11/06/24 08:17
Cardiovascular:: Regular rate and rhythm
Respiratory:: Bilateral: CTA
Lung Excursion:: Normal
Abdomen:: Nontender and Soft
Extremity Edema:: None: Bilateral:
Moreira Catheter: No
[2024-11-06 12:58] LABS: Glucose - Point of Care 60 mg/dl (70-99)
[2024-11-06 13:38] LABS: Glucose - Point of Care 95 mg/dl (70-99)
[2024-11-06 15:00] VITALS: BP 127/59; BP 153/74; PULSE 61; PULSE 63
[2024-11-06 15:57] LABS: Glucose - Point of Care 104 mg/dl (70-99)
[2024-11-06] MEDS: COUMADIN 5 MG PO (18:34)
[2024-11-06 19:13] LABS: Hepatitis C Antibody Negative (Negative)
[2024-11-06 22:46] LABS: Glucose - Point of Care 83 mg/dl (70-99)
[2024-11-06 23:17] VITALS: BP 127/68
[2024-11-07] MEDS: NSS 1000 IV (00:58)
[2024-11-07 04:34] LABS: Glucose - Point of Care 85 mg/dl (70-99)
[2024-11-07 07:00] VITALS: BP 152/78; BP 153/74; BP 163/86; PULSE 79; PULSE 87; PULSE 96
[2024-11-07 07:42] LABS: Glucose - Point of Care 76 mg/dl (70-99)
[2024-11-07 07:48] LABS: INR 2.43; PT 26.5 Sec (11.4-14.6)
[2024-11-07 07:59] LABS: Blood Urea Nitrogen 13 mg/dl (7-17); Calcium 8.7 mg/dl (8.4-10.2); Carbon Dioxide 30 mmol/L (22-30); Chloride 107 mmol/L (98-107); Creatine Phosphokinase 611 U/L (30-135); Estimated Creatinine Clearance 45 ml/min; Glucose 83 mg/dl (70-99); Potassium 4.3 mmol/L (3.5-5.1); Sodium 137 mmol/L (135-145); eGFR > 60.00
--- NOTE | 2024-11-07 08:55 | W.PN.HOSP.TC ---
Addendum entered and electronically signed by Shonna Zapien MD 11/07/24 12:39:
# Hyponatremia only
Original Note:
Today's Communication/Plan
-
see A/P
Dispo: HH, pt requesting DC tmr and not today due to animal care assistant availability
Assessment / Plan
Assessment / Plan
HPI: 79-year-old female with past medical history of fibromyalgia, chronic back pain, T/L-spine compression fractures, kyphosis, osteoporosis, IBS, COPD, mesothelioma, and DVT on Coumadin presented with acute on chronic intractable lower back pain.
Patient reported getting a new mattress on Wednesday that is softer. Since then, she has had worsening acute on chronic lower back pain with radiation down the left buttock. Patient denies any injury, new fall or trauma. She reports drinking a lot of
water, this is normal for her. She did not take any medications for pain at home due to concerns about it interacting with Coumadin. She denies bowel or bladder incontinence, saddle anesthesia, or new weakness. No fever, no chest pain, no
shortness of breath. She does report abdominal bloating. No vomiting, no constipation, no diarrhea. She lives alone, and has caregivers come a few hours a day.
A/P:
# Hyponatremia, likely acute on chronic, resolved
Patient reports drinking 6�8 bottles of 16 ounces of water a day
Appreciate nephrology input, due to polydipsia and an underlying high ADH state due to her chronic pain
Sodium now normalized, continue fluid restriction, trend Na
# Acute on chronic worsening lower back pain
Denies trauma, denies fall
Occurring since changing to a softer mattress
CT abdomen and pelvis does not show any new compression fractures, only old
Treat with heat, ice, lidocaine patches, Tylenol, Valium/oxycodone as needed
PT/OT recommends home PT/home VN, and increasing caregiver hours
# Nontraumatic rhabdomyolysis
Patient received 1 L normal saline in the ER, and 1 L D5W by nephrology
Cont gentle IVF with NSS, CK levels improved from 2600 to 600
# History of DVT on Coumadin
INR therapeutic, continue Coumadin
# Osteoporosis
# Kyphosis
Continue calcium and vitamin D supplements
# History of diabetes, no longer diabetic
Accu-Cheks, sliding scale insulin, hemoglobin A1c 5.5
Provide a regular diet for now since patient is underweight
# Underweight
Encourage oral intake, protein supplements
# Anxiety
Monitor
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
Check B12 level
A1C WNL at 5.5%
recc outpt PCP/Neuro eval
DVT prophylaxis�Coumadin
Full code
Dispo: HH, pt requesting DC tmr and not today due to animal care assistant availability
Updated son on phone
Anticipated Discharge: Within 24 hours
Subjective/Interval History
-
Date of Service: November 07, 2024
Objective Data
-
Labs:
Laboratory Results
11/07/24
06:24
PT 26.5 H
INR 2.43
Sodium 137
Potassium 4.3
Chloride 107
Carbon Dioxide 30
BUN 13
Creatinine 0.5 L
Glucose 83
Calcium 8.7
Vital Signs:
Vital Signs
Temp Pulse Resp BP Pulse Ox
36.6 C 79 16 153/74 96
11/07/24 07:00 11/07/24 07:00 11/07/24 07:00 11/07/24 07:00 11/07/24 07:00
I&O
11/06/24 11/07/24 11/08/24
06:59 06:59 06:59
Intake Total 240 / 240 340 / 340
Balance 240 / 240 340 / 340
Review of Systems
-
History Source: Patient
All other systems: Reviewed and negative
Neuro: Reports Other (chronic pins and needles in feet and hands)
Physical Exam
-
General: Well Developed, No Apparent Distress, Comfortable and Conversant; Negative Respiratory Distress
HEENT: Normocephalic, Atraumatic, Nose Appears Normal and Ears Appear Normal; Negative Oxygen
Respiratory: Clear to Auscultation and Non Labored Respirations; Negative Accessory Resp Muscle Use
Cardiac: Regular Rhythm and S1/S2
GI: Soft, Nontender, Nondistended and Normal Bowel Sounds
Skin: Warm and Dry
Neuro: Awake, Alert and Oriented
Psych: Calm and Intact Judgement/Insight
Data Reviewed
-
CT Scan: Report Reviewed by me
Labs: Labs Reviewed by me
[2024-11-07] MEDS: NON-FORMULARY ITEM 1 UNIT PO (09:43)
--- NOTE | 2024-11-07 10:18 | VNURNOTE ---
Home Health Liaison met with patient at bedside to discuss [facility] nurse/therapy, visits, schedule and homebound status. Patient is agreeable and understands that visits at home will be 2-3 x per week to assess and teach medical management. Patient is
aware that [facility] will contact them for start of care in 1-2 days after discharge from .
[facility] referral completed in [facility].
--- NOTE | 2024-11-07 12:10 | PN.CDI ---
CDI
- -
CDI:
Physician Documentation Request
Admit Date: 11/04/24 13:06
Dear Doctor Curry,
Please review the following and provide your response in the progress notes.
Clinical Indicators:
- 11/07 PN 'Hyponatremia...due to polydipsia and an underlying high ADH state due to her chronic pain'
- Fluid restriction 1440ml/day
Laboratory Tests
11/04/24 11/04/24 11/07/24
10:06 21:07 06:24
Sodium 122 L 134 L 137
Please clarify in the progress notes, the appropriate diagnosis, if significant, that supports the above abnormalities and additional evaluation, monitoring and/or treatment rendered:
SIADH
Hyponatremia only
Other (please specify)
Use of terms such as suspected, likely, concern for, or probable (associated with a specific diagnosis that is being evaluated, monitored, or treated as if it exists) are acceptable and can be coded in the inpatient setting, when documented at the
time of discharge.
Thank you,
Viral Sarabia RN
CDI Specialist
Please use your independent medical judgment in providing your response.
[2024-11-07 12:57] LABS: Glucose - Point of Care 70 mg/dl (70-99)
--- NOTE | 2024-11-07 13:10 | W.PN.NEPH.PH ---
Today's Communication / Plan
-
Continue fluid restriction
Okay for discharge from renal standpoint with labs in 1 week
Assessment/Plan
-
IMP:
Hyponatremia
Acute on chronic worsening lower back pain
Mild rhabdomyolysis
History of DVT on Coumadin
Osteoporosis
Kyphosis
History of diabetes
Underweight
Anxiety
Right-sided pelvic kidney. Dilation of the right renal pelvis with mild dilation of the calyces on CT
plan:
A/w acute on chr back pain
Hyponatremia-(no previous history of sodium issue), precipitated by pain +polydipsia
urine osmolarity at 177, urine sodium 16 suggest polydipsia. She may have underlying high ADH state with a chronic pain
sodium stable now at 135
her TSH and cortisol normal, cont fluid restriction With 48 ounces per day
Blood pressures stable
improving CK , down to 650
Increase protein in her diet discussed with her and her sister
CT findings noted with a right pelvic kidney with dilation of renal pelvis and calyces-she has bland urine and normal renal function with a creatinine of 0.5
follow-up as an outpatient with the
d/w pt
-
-
Date of Service: November 07, 2024
CC / HPI / ROS
-
Chief Complaint:
hypoantremia, mild Rhabdo
History of Present Illness:
cr 0.6, na 135 stable
bp stable
CK improving to 1083
Review of Systems:
no cp, or sob
back pain better
did not sleep well
c/o neuropathy symp in le for a while now
Labs
-
Labs:
WBC 9.3 10^3/uL (4.8-10.8) 11/04/24 10:06
RBC 3.99 10^6/uL (4.20-5.40) L 11/04/24 10:06
Hgb 12.5 g/dL (12.0-16.0) 11/04/24 10:06
Hct 34.8 % (37.0-47.0) L 11/04/24 10:06
Plt Count 280 10^3/uL (130-400) 11/04/24 10:06
Sodium 137 mmol/L (135-145) 11/07/24 06:24
Potassium 4.3 mmol/L (3.5-5.1) 11/07/24 06:24
Chloride 107 mmol/L (98-107) 11/07/24 06:24
Carbon Dioxide 30 mmol/L (22-30) 11/07/24 06:24
BUN 13 mg/dl (7-17) 11/07/24 06:24
Creatinine 0.5 mg/dL (0.6-1.0) L 11/07/24 06:24
eGFR > 60.00 11/07/24 06:24
Glucose 83 mg/dl (70-99) 11/07/24 06:24
Calcium 8.7 mg/dl (8.4-10.2) 11/07/24 06:24
Phosphorus 3.0 mg/dl (2.5-4.5) 11/05/24 05:17
Albumin 4.3 g/dl (3.5-5.0) 11/04/24 10:06
Physical Exam
-
Vital Signs:
Vital Signs
Temp Pulse Resp BP Pulse Ox
97.9 F 79 16 153/74 96
11/07/24 07:00 11/07/24 07:00 11/07/24 07:00 11/07/24 07:00 11/07/24 07:00
Cardiovascular:: Regular rate and rhythm
Respiratory:: Bilateral: CTA
Lung Excursion:: Normal
Abdomen:: Nontender and Soft
Extremity Edema:: None: Bilateral:
Moreira Catheter: No
[2024-11-07 14:00] VITALS: BP 135/67; PULSE 94; O2SAT 97
[2024-11-07 15:00] VITALS: BP 143/79
[2024-11-07 15:23] VITALS: BP 143/79
[2024-11-07 16:48] LABS: Glucose - Point of Care 73 mg/dl (70-99)
[2024-11-07] MEDS: COUMADIN 2.5 MG PO (17:42)
[2024-11-07 21:25] LABS: Glucose - Point of Care 85 mg/dl (70-99)
[2024-11-07 23:30] VITALS: BP 133/63
[2024-11-08 07:20] VITALS: BP 126/75
[2024-11-08 07:38] LABS: INR 2.49
[2024-11-08 07:51] LABS: Glucose - Point of Care 66 mg/dl (70-99)
[2024-11-08 07:57] LABS: Blood Urea Nitrogen 17 mg/dl (7-17); Calcium 9.1 mg/dl (8.4-10.2); Carbon Dioxide 27 mmol/L (22-30); Chloride 104 mmol/L (98-107); Creatine Phosphokinase 357 U/L (30-135); Estimated Creatinine Clearance 45 ml/min; Glucose 89 mg/dl (70-99); Potassium 4.1 mmol/L (3.5-5.1); Sodium 136 mmol/L (135-145); eGFR > 60.00
[2024-11-08] MEDS: NON-FORMULARY ITEM 1 UNIT PO (08:00)
[2024-11-08 08:05] LABS: Glucose - Point of Care 78 mg/dl (70-99)
--- NOTE | 2024-11-08 09:38 | W.PN.HOSP.TC ---
Addendum entered and electronically signed by Shonna Zapien MD 11/08/24 17:01:
total DC time 40 min
Original Note:
Today's Communication/Plan
-
DC today with HH
Assessment / Plan
Assessment / Plan
HPI: 79-year-old female with past medical history of fibromyalgia, chronic back pain, T/L-spine compression fractures, kyphosis, osteoporosis, IBS, COPD, mesothelioma, and DVT on Coumadin presented with acute on chronic intractable lower back pain.
Patient reported getting a new mattress on Wednesday that is softer. Since then, she has had worsening acute on chronic lower back pain with radiation down the left buttock. Patient denies any injury, new fall or trauma. She reports drinking a lot of
water, this is normal for her. She did not take any medications for pain at home due to concerns about it interacting with Coumadin. She denies bowel or bladder incontinence, saddle anesthesia, or new weakness. No fever, no chest pain, no
shortness of breath. She does report abdominal bloating. No vomiting, no constipation, no diarrhea. She lives alone, and has caregivers come a few hours a day.
A/P:
# Hyponatremia, likely acute on chronic, resolved
Patient reports drinking 6�8 bottles of 16 ounces of water a day
Appreciate nephrology input, due to polydipsia and an underlying high ADH state due to her chronic pain
Sodium now normalized, continue fluid restriction, trend Na
# Acute on chronic worsening lower back pain
Denies trauma, denies fall
Occurring since changing to a softer mattress
CT abdomen and pelvis does not show any new compression fractures, only old
Treat with heat, ice, lidocaine patches, Tylenol, Valium/oxycodone as needed
PT/OT recommends home PT/home VN, and increasing caregiver hours
# Nontraumatic rhabdomyolysis
Patient received 1 L normal saline in the ER, and 1 L D5W by nephrology
s/p gentle IVF with NSS, CK levels improved from 2600 to 350
# History of DVT on Coumadin
INR therapeutic, continue Coumadin
# Osteoporosis
# Kyphosis
Continue calcium and vitamin D supplements
# History of diabetes, no longer diabetic
Accu-Cheks, sliding scale insulin, hemoglobin A1c 5.5
Provide a regular diet for now since patient is underweight
# Underweight
Encourage oral intake, protein supplements
# Anxiety
Monitor
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
Check B12 level
A1C WNL at 5.5%
recc outpt PCP/Neuro eval
DVT prophylaxis�Coumadin
Full code
Dispo: HH
Anticipated Discharge: Today
Subjective/Interval History
-
Date of Service: November 08, 2024
Objective Data
-
Labs:
Laboratory Results
11/08/24
06:59
PT 27.0 H
INR 2.49
Sodium 136
Potassium 4.1
Chloride 104
Carbon Dioxide 27
BUN 17
Creatinine 0.6
Glucose 89
Calcium 9.1
Vital Signs:
Vital Signs
Temp Pulse Resp BP Pulse Ox
36.6 C 76 16 126/75 99
11/08/24 07:20 11/08/24 07:20 11/08/24 07:20 11/08/24 07:20 11/08/24 07:20
I&O
11/07/24 11/08/24 11/09/24
06:59 06:59 06:59
Intake Total 340 / 340 1080 / 1080
Balance 340 / 340 1080 / 1080
Review of Systems
-
History Source: Patient
All other systems: Reviewed and negative
Physical Exam
-
General: Well Developed, No Apparent Distress, Comfortable and Conversant; Negative Respiratory Distress
HEENT: Normocephalic, Atraumatic, Nose Appears Normal and Ears Appear Normal; Negative Oxygen
Respiratory: Clear to Auscultation and Non Labored Respirations; Negative Accessory Resp Muscle Use
Cardiac: Regular Rhythm and S1/S2
GI: Soft, Nontender, Nondistended and Normal Bowel Sounds
Skin: Warm and Dry
Neuro: Awake, Alert and Oriented
Psych: Calm and Intact Judgement/Insight
Data Reviewed
-
CT Scan: Report Reviewed by me
Labs: Labs Reviewed by me
[2024-11-08 10:00] VITALS: BP 131/68
--- NOTE | 2024-11-08 10:39 | CM ---
Patient is stable for d/c today. Therapy rec home PT, [facility] accepted for services
Met w/ patient bedside, son will transport home
IMM verbally reviewed, copy given to patient, copy on chart
Plan: Home today w/ [facility]
--- NOTE | 2024-11-08 10:45 | W.PN.NEPH.PH ---
Today's Communication / Plan
-
ok for d/c
Assessment/Plan
-
IMP:
Hyponatremia
Acute on chronic worsening lower back pain
Mild rhabdomyolysis
History of DVT on Coumadin
Osteoporosis
Kyphosis
History of diabetes
Underweight
Anxiety
Right-sided pelvic kidney. Dilation of the right renal pelvis with mild dilation of the calyces on CT
plan:
A/w acute on chr back pain
Hyponatremia-(no previous history of sodium issue), precipitated by pain +polydipsia
urine osmolarity at 177, urine sodium 16 suggest polydipsia. She may have underlying high ADH state with a chronic pain
sodium stable now at 136
her TSH and cortisol normal, cont fluid restriction With 48 ounces per day
Blood pressures stable
improving CK , down to 357
Increase protein in her diet
CT findings noted with a right pelvic kidney with dilation of renal pelvis and calyces-she has bland urine and normal renal function with a creatinine of 0.5
follow-up as an outpatient with the
d/w pt
ok for d/c
-
-
Date of Service: November 08, 2024
CC / HPI / ROS
-
Chief Complaint:
hypoantremia, mild Rhabdo
History of Present Illness:
cr 0.6, na 136 stable
bp stable
CK improving to 357
Review of Systems:
no cp, or sob
back pain better
Labs
-
Labs:
WBC 9.3 10^3/uL (4.8-10.8) 11/04/24 10:06
RBC 3.99 10^6/uL (4.20-5.40) L 11/04/24 10:06
Hgb 12.5 g/dL (12.0-16.0) 11/04/24 10:06
Hct 34.8 % (37.0-47.0) L 11/04/24 10:06
Plt Count 280 10^3/uL (130-400) 11/04/24 10:06
Sodium 136 mmol/L (135-145) 11/08/24 06:59
Potassium 4.1 mmol/L (3.5-5.1) 11/08/24 06:59
Chloride 104 mmol/L (98-107) 11/08/24 06:59
Carbon Dioxide 27 mmol/L (22-30) 11/08/24 06:59
BUN 17 mg/dl (7-17) 11/08/24 06:59
Creatinine 0.6 mg/dL (0.6-1.0) 11/08/24 06:59
eGFR > 60.00 11/08/24 06:59
Glucose 89 mg/dl (70-99) 11/08/24 06:59
Calcium 9.1 mg/dl (8.4-10.2) 11/08/24 06:59
Phosphorus 3.0 mg/dl (2.5-4.5) 11/05/24 05:17
Albumin 4.3 g/dl (3.5-5.0) 11/04/24 10:06
Physical Exam
-
Vital Signs:
Vital Signs
Temp Pulse Resp BP Pulse Ox
97.3 F 75 18 119/69 97
11/08/24 14:00 11/08/24 14:00 11/08/24 14:00 11/08/24 14:00 11/08/24 14:00
Cardiovascular:: Regular rate and rhythm
Respiratory:: Bilateral: CTA
Lung Excursion:: Normal
Abdomen:: Nontender and Soft
Extremity Edema:: None: Bilateral:
Moreira Catheter: No
[2024-11-08 12:07] LABS: Glucose - Point of Care 66 mg/dl (70-99)
[2024-11-08 12:32] LABS: Glucose - Point of Care 127 mg/dl (70-99)
[2024-11-08 14:00] VITALS: BP 119/69
--- NOTE | 2024-11-08 16:10 | DOWNTIME ---
There was a [employer] Downtime on 11/08/2024 from 1230 to 11/08/2024 at 1550. Downtime documentation of patient's care, including medication administrations, has been reconciled in the electronic record per guidelines. Refer to the
patient's paper chart under the miscellaneous tab to see printed paper medication records and downtime forms.
--- NOTE | 2024-11-08 16:27 | W.DCSUMMARY ---
Discharge Summary
Discharge Data
Date of Admission: 11/04/24
Date of Discharge: 11/08/24
-
Pending Results: No
Hospital Course
Principal Diagnosis:
Acute hyponatremia, resolved
Acute on chronic lower back pain.
Nontraumatic rhabdomyolysis
Chronic Diagnoses:�
History of DVT on Coumadin
Osteoporosis
Kyphosis, T/L-spine compression fractures
Underweight
Anxiety
Fibromyalgia
Chronic back pain
Consultations:�
Nephrology
Procedures:�
None
Clinical course:�
This is a 79-year-old female with past medical history as stated above, who presented with acute on chronic intractable lower back pain. Apparently this occurred after she slept on a new mattress. She denied to any injury, fall or trauma.
Problem 1:
Acute hyponatremia, resolved.
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
Her sodium level normalized while in the hospital (sodium level 136 on the day of discharge). She has been informed to continue fluid restriction, and she can check BMP in 1 week with result to her PCP.
Problem 2:
Acute on chronic lower back pain.
Denied to trauma or fall.
Her CT did not show any new fractures (noted mild to moderate diffuse compression deformities of the lumbar and lower thoracic spine).
She was seen by PT OT and was recommended to return home with home health.
Problem 3:
Nontraumatic rhabdomyolysis.
CPK level improved from 2600 to 350 with IVF.
As for the rest of her medical problems, they were stable during her hospital stay.
Discharge Plan
-
Patient Disposition: Home with Home Care
Discharge Diagnosis/Procedures: Hyponatremia (likely acute on chronic) resolved;
Nontraumatic rhabdomyolysis;
Condition: Fair
Diet: As tolerated and Restrict fluids to 48 oz
Activity: As tolerated
Driving Restrictions: As prior to admission
Blood Work: BMP in 1 week with result to your PCP
Activity Restrictions/Additional Instructions:
Follow up with your PCP for work up of chronic pins and needles of feet and hands (suspect peripheral sensory neuropathy)
Referrals:
Norberto Okeefe, DO [Family Provider] - in less than 1 week
Prescriptions:
Continued
warfarin 5 mg Tablet
5 mg PO MOWEFR
warfarin 2.5 mg Tablet
2.5 mg PO SUTUTHSA
magnesium hydroxide [Milk of Magnesia] 400 mg/5 mL Suspension
1,200 mg PO DAILYPRN PRN (Reason: constipation)
cholecalciferol (vitamin D3) [Vitamin D3] 25 mcg (1,000 unit) Tablet,Chewable
25 mcg PO DAILY
Discontinued
calcium carbonate [Calcium 500] 500 mg calcium (1,250 mg) Tablet,Chewable
500 mg PO DAILY
Discharge Orders:
Discharge Patient (As Directed); Ordered 11/08/24
Ordered By: Shonna Zapien
Discharge Date and Time
Print Language: GEORGIAN
== END 2024-11-08 14:50 | disposition home health service (06) | DRG 644 ==
LOC: 4 WEST ACU 13:06
PROVIDERS: Physician Assistant; ADMITTING PHYSICIAN Family Medicine; ATTENDING PHYSICIAN Internal Medicine; CONSULT PHYSICIAN Internal Medicine; EMERGENCY PHYSICIAN Emergency Medicine; FAMILY PHYSICIAN Family Medicine
DX: E22.2 Syndrome of inappropriate secretion of antidiuretic hormone (principal); M48.56XA Collapsed vertebra, not elsewhere classified, lumbar region, initial encounter for fracture; M62.82 Rhabdomyolysis; Z68.1 Body mass index [BMI] 19.9 or less, adult; Z79.01 Long term (current) use of anticoagulants; I83.90 Asymptomatic varicose veins of unspecified lower extremity; G89.29 Other chronic pain; M81.0 Age-related osteoporosis without current pathological fracture; M40.209 Unspecified kyphosis, site unspecified; Z85.831 Personal history of malignant neoplasm of soft tissue; Z87.891 Personal history of nicotine dependence; R63.6 Underweight; F41.9 Anxiety disorder, unspecified; M79.7 Fibromyalgia
CPT/HCPCS: 74176; 80048; 80053; 81003; 81015; 82533; 82550; 82570; 82607; 82962; 83036; 83735; 83930; 83935; 84100; 84295; 84300; 84443; 85025; 85610; 85730; 86803; 96360; 97110; 97116; 97162; 97166; 97530; 97535; 99285